=== PATIENT | female | born 1935 | race Native Hawaiian/Other Pacific Islander ===

== ENCOUNTER 2016-10-25 08:31 | Inpatient (IN) | payer OTHER ==
[~2016-10-25 08:31] MED LIST: ALPR0.5T24 PO; ASCO500T18 PO; ASPIRIN LOW STR81 MG PO; CITALOPRAM20 MG PO; DEXTLIQ63 PO; FURO40TA93 PO; HYDR25TA15 PO; LISI5TAB10 PO; MELATONIN3 M1 PO; METOPROLOL25 M1 PO; MULTI-VITAMIN DAILY PO; NAPROSYN500 MG PO; OXYC10TAB PO; PLAVIX75 MG PO; SIMV20TA2 PO; TRAM50TA PO; TRAVATAN Z0.004 % OPTH; ZINC220 MG PO
== END 2016-11-25 08:00 | disposition still patient (30) ==
LOC: PAVA 08:31
PROVIDERS: ADMIT Internal Medicine
DX: Z51.89 Encounter for other specified aftercare (principal)

== ENCOUNTER 2016-11-25 09:00 | Inpatient (IN) | payer OTHER | END 2016-12-26 08:34 | disposition still patient (30) | LOC: PAVA 09:00 | PROVIDERS: ADMIT Internal Medicine | DX: Z51.89 Encounter for other specified aftercare (principal) ==

== ENCOUNTER 2016-12-04 04:18 | Outpatient (CLI) | payer OTHER | END 2016-12-04 19:06 | disposition home or self-care (01) | LOC: LAB 04:18 | DX: D64.89 Other specified anemias (principal) | CPT/HCPCS: 36415; 85014; 85018 ==

== ENCOUNTER 2016-12-11 04:29 | Outpatient (CLI) | payer OTHER | END 2016-12-11 22:54 | disposition home or self-care (01) | LOC: LAB 04:29 | DX: D64.89 Other specified anemias (principal) | CPT/HCPCS: 36415; 85014; 85018 ==

== ENCOUNTER 2016-12-13 07:31 | Day surgery (SDC) | payer OTHER ==
[~2016-12-13] VITALS: Ht 30.5 cm; Wt 0.5 kg
== END 2016-12-13 10:10 ==
LOC: OR 07:31
PROC: 0DJD8ZZ Inspection of Lower Intestinal Tract, Via Natural or Artificial Opening Endoscopic (ICD-10-PCS; principal; 2016-12-13)
DX: K92.2 Gastrointestinal hemorrhage, unspecified (principal); Z85.038 Personal history of other malignant neoplasm of large intestine
CPT/HCPCS: J1642; J2704

== ENCOUNTER 2016-12-18 04:39 | Outpatient (CLI) | payer OTHER | END 2016-12-18 23:30 | disposition home or self-care (01) | LOC: LAB 04:39 | DX: D64.89 Other specified anemias (principal) | CPT/HCPCS: 85014; 85018 ==

== ENCOUNTER 2016-12-25 04:35 | Outpatient (CLI) | payer OTHER | END 2016-12-25 19:42 | disposition home or self-care (01) | LOC: LAB 04:35 | DX: D64.89 Other specified anemias (principal) | CPT/HCPCS: 85014; 85018 ==

== ENCOUNTER 2016-12-26 09:07 | Inpatient (IN) | payer OTHER | END 2017-01-23 08:16 | disposition still patient (30) | LOC: PAVA 09:07 | PROVIDERS: ADMIT Internal Medicine | DX: Z51.89 Encounter for other specified aftercare (principal) ==

== ENCOUNTER 2016-12-27 04:02 | Outpatient (CLI) | payer OTHER ==
[2016-12-27 04:35] LABS: PLATELET COUNT 197 K/uL (152-353)
== END 2016-12-27 06:02 | disposition home or self-care (01) ==
LOC: LAB 04:02
PROVIDERS: Internal Medicine
DX: D64.89 Other specified anemias (principal)
CPT/HCPCS: 85027

== ENCOUNTER 2016-12-31 13:32 | Outpatient (CLI) | payer OTHER | END 2016-12-31 20:13 | disposition home or self-care (01) | LOC: RAD 13:32 | DX: M25.511 Pain in right shoulder (principal); M25.561 Pain in right knee ==

== ENCOUNTER 2017-01-01 04:41 | Outpatient (CLI) | payer OTHER | END 2017-01-01 20:09 | disposition home or self-care (01) | LOC: LAB 04:41 | DX: D64.89 Other specified anemias (principal) | CPT/HCPCS: 36415; 85014; 85018 ==

== ENCOUNTER 2017-01-08 04:41 | Outpatient (CLI) | payer OTHER | END 2017-01-08 05:41 | disposition home or self-care (01) | LOC: LAB 04:41 | DX: D64.89 Other specified anemias (principal) | CPT/HCPCS: 36415; 85014; 85018 ==

== ENCOUNTER 2017-01-15 04:22 | Outpatient (CLI) | payer OTHER | END 2017-01-15 23:35 | disposition home or self-care (01) | LOC: LAB 04:22 | DX: D64.89 Other specified anemias (principal) | CPT/HCPCS: 36415; 85014; 85018 ==

== ENCOUNTER 2017-01-22 04:32 | Outpatient (CLI) | payer OTHER | END 2017-01-22 19:19 | disposition home or self-care (01) | LOC: LAB 04:32 | DX: D64.89 Other specified anemias (principal) | CPT/HCPCS: 36415; 85014; 85018 ==

== ENCOUNTER 2017-01-23 08:27 | Inpatient (IN) | payer OTHER | END 2017-02-23 08:01 | disposition still patient (30) | LOC: PAVA 08:27 | PROVIDERS: ADMIT Internal Medicine | DX: Z51.89 Encounter for other specified aftercare (principal) ==

== ENCOUNTER 2017-01-24 05:32 | Outpatient (CLI) | payer OTHER ==
[2017-01-24 06:48] LABS: PLATELET COUNT 191 K/uL (152-353)
== END 2017-01-24 19:27 | disposition home or self-care (01) ==
LOC: LAB 05:32
PROVIDERS: Internal Medicine
DX: D64.89 Other specified anemias (principal)
CPT/HCPCS: 36415; 85027

== ENCOUNTER 2017-01-29 04:18 | Outpatient (CLI) | payer OTHER | END 2017-01-29 19:38 | disposition home or self-care (01) | LOC: LAB 04:18 | DX: D64.89 Other specified anemias (principal) | CPT/HCPCS: 36415; 85014; 85018 ==

== ENCOUNTER 2017-02-05 04:17 | Outpatient (CLI) | payer OTHER | END 2017-02-05 19:28 | disposition home or self-care (01) | LOC: LAB 04:17 → RAD 04:17 | DX: D64.89 Other specified anemias (principal); R06.02 Shortness of breath | CPT/HCPCS: 36415; 85014; 85018 ==

== ENCOUNTER 2017-02-12 03:14 | Outpatient (CLI) | payer OTHER | END 2017-02-12 19:11 | disposition home or self-care (01) | LOC: LAB 03:14 | DX: D64.89 Other specified anemias (principal) | CPT/HCPCS: 36415; 85014; 85018 ==

== ENCOUNTER 2017-02-19 04:27 | Outpatient (CLI) | payer OTHER | END 2017-02-19 19:12 | disposition home or self-care (01) | LOC: LAB 04:27 | DX: D64.89 Other specified anemias (principal) | CPT/HCPCS: 36415; 85014; 85018 ==

== ENCOUNTER 2017-02-23 09:44 | Inpatient (IN) | payer OTHER | END 2017-03-25 08:29 | disposition still patient (30) | LOC: PAVA 09:44 | PROVIDERS: ADMIT Internal Medicine | DX: Z51.89 Encounter for other specified aftercare (principal) ==

== ENCOUNTER 2017-02-26 05:57 | Outpatient (CLI) | payer OTHER ==
[2017-02-26 07:01] LABS: PLATELET COUNT 234 K/uL (152-353)
== END 2017-02-26 06:57 | disposition home or self-care (01) ==
LOC: LAB 05:57
PROVIDERS: Internal Medicine
DX: D64.89 Other specified anemias (principal); I10 Essential (primary) hypertension
CPT/HCPCS: 85027

== ENCOUNTER 2017-03-05 04:12 | Outpatient (CLI) | payer OTHER | END 2017-03-05 19:15 | disposition home or self-care (01) | LOC: LAB 04:12 | DX: D64.89 Other specified anemias (principal) | CPT/HCPCS: 36415; 85014; 85018 ==

== ENCOUNTER 2017-03-12 05:17 | Outpatient (CLI) | payer OTHER | END 2017-03-12 19:10 | disposition home or self-care (01) | LOC: LAB 05:17 | DX: D64.89 Other specified anemias (principal) | CPT/HCPCS: 85014; 85018 ==

== ENCOUNTER 2017-03-19 05:07 | Outpatient (CLI) | payer OTHER | END 2017-03-19 19:04 | disposition home or self-care (01) | LOC: LAB 05:07 | DX: D64.89 Other specified anemias (principal) | CPT/HCPCS: 36415; 85014; 85018 ==

== ENCOUNTER 2017-03-23 01:13 | Outpatient (CLI) | payer OTHER | END 2017-03-23 19:07 | disposition home or self-care (01) | LOC: LAB 01:13 | DX: Z16.24 Resistance to multiple antibiotics (principal) | CPT/HCPCS: 87081 ==

== ENCOUNTER 2017-03-25 08:42 | Inpatient (IN) | payer OTHER | END 2017-04-25 08:10 | disposition still patient (30) | LOC: PAVA 08:42 | PROVIDERS: ADMIT Internal Medicine | DX: Z51.89 Encounter for other specified aftercare (principal) ==

== ENCOUNTER 2017-03-25 11:17 | Outpatient (CLI) | payer OTHER ==
[2017-03-25 11:38] LABS: PLATELET COUNT 191 K/uL (152-353)
== END 2017-03-25 20:00 | disposition home or self-care (01) ==
LOC: LAB 11:17
PROVIDERS: Internal Medicine
DX: D64.9 Anemia, unspecified (principal)
CPT/HCPCS: 36415; 85027

== ENCOUNTER 2017-04-02 04:15 | Outpatient (CLI) | payer OTHER | END 2017-04-02 05:30 | disposition home or self-care (01) | LOC: LAB 04:15 | DX: D64.89 Other specified anemias (principal) | CPT/HCPCS: 36415; 85014; 85018 ==

== ENCOUNTER 2017-04-09 04:20 | Outpatient (CLI) | payer OTHER | END 2017-04-09 19:42 | disposition home or self-care (01) | LOC: LAB 04:20 | DX: D64.89 Other specified anemias (principal) | CPT/HCPCS: 36415; 85014; 85018 ==

== ENCOUNTER 2017-04-16 04:46 | Outpatient (CLI) | payer OTHER | END 2017-04-16 06:00 | disposition home or self-care (01) | LOC: LAB 04:46 | DX: D64.89 Other specified anemias (principal) | CPT/HCPCS: 36415; 85014; 85018 ==

== ENCOUNTER 2017-04-23 04:36 | Outpatient (CLI) | payer OTHER | END 2017-04-23 19:07 | disposition home or self-care (01) | LOC: LAB 04:36 | DX: D64.89 Other specified anemias (principal) | CPT/HCPCS: 36415; 85014; 85018 ==

== ENCOUNTER 2017-04-25 08:21 | Inpatient (IN) | payer OTHER | END 2017-05-25 14:56 | disposition still patient (30) | LOC: PAVA 08:21 | PROVIDERS: ADMIT Internal Medicine | DX: Z51.89 Encounter for other specified aftercare (principal) ==

== ENCOUNTER 2017-04-30 04:51 | Outpatient (CLI) | payer OTHER ==
[2017-04-30 05:09] LABS: PLATELET COUNT 197 K/uL (152-353)
[2017-04-30 05:37] LABS: POTASSIUM 3.7 mmol/L (3.6-5.2)
== END 2017-04-30 19:06 | disposition home or self-care (01) ==
LOC: LAB 04:51
PROVIDERS: Internal Medicine
DX: Z79.899 Other long term (current) drug therapy (principal); D64.89 Other specified anemias; Z51.81 Encounter for therapeutic drug level monitoring
CPT/HCPCS: 80053; 85027

== ENCOUNTER 2017-05-07 04:41 | Outpatient (CLI) | payer OTHER | END 2017-05-07 05:45 | disposition home or self-care (01) | LOC: LAB 04:41 | DX: D64.89 Other specified anemias (principal) | CPT/HCPCS: 36415; 85014; 85018 ==

== ENCOUNTER 2017-05-14 04:25 | Outpatient (CLI) | payer OTHER | END 2017-05-14 19:03 | disposition home or self-care (01) | LOC: LAB 04:25 | DX: D64.89 Other specified anemias (principal) | CPT/HCPCS: 36415; 85014; 85018 ==

== ENCOUNTER 2017-05-21 04:21 | Outpatient (CLI) | payer OTHER | END 2017-05-21 05:30 | disposition home or self-care (01) | LOC: LAB 04:21 | DX: D64.89 Other specified anemias (principal) | CPT/HCPCS: 36415; 85014; 85018 ==

== ENCOUNTER 2017-05-25 15:05 | Inpatient (IN) | payer OTHER | END 2017-06-25 08:29 | disposition still patient (30) | LOC: PAVA 15:05 | PROVIDERS: ADMIT Internal Medicine | DX: Z51.89 Encounter for other specified aftercare (principal) ==

== ENCOUNTER 2017-05-27 06:27 | Outpatient (CLI) | payer OTHER ==
[2017-05-27 07:14] LABS: PLATELET COUNT 197 K/uL (152-353)
== END 2017-05-27 07:30 | disposition home or self-care (01) ==
LOC: LAB 06:27
PROVIDERS: Internal Medicine
DX: D50.8 Other iron deficiency anemias (principal)
CPT/HCPCS: 85027

== ENCOUNTER 2017-06-03 05:35 | Outpatient (CLI) | payer OTHER | END 2017-06-03 06:40 | disposition home or self-care (01) | LOC: LAB 05:35 | DX: D64.89 Other specified anemias (principal) | CPT/HCPCS: 36415; 85014; 85018 ==

== ENCOUNTER 2017-06-05 14:18 | Outpatient (CLI) | payer OTHER | END 2017-06-05 15:20 | disposition home or self-care (01) | LOC: LAB 14:18 | DX: D64.89 Other specified anemias (principal) | CPT/HCPCS: 85014; 85018 ==

== ENCOUNTER 2017-06-10 13:57 | Outpatient (CLI) | payer OTHER | END 2017-06-10 15:00 | disposition home or self-care (01) | LOC: LAB 13:57 | DX: D64.89 Other specified anemias (principal) | CPT/HCPCS: 36415; 85014; 85018 ==

== ENCOUNTER 2017-06-17 07:02 | Outpatient (CLI) | payer OTHER | END 2017-06-17 19:23 | disposition home or self-care (01) | LOC: LAB 07:02 | DX: D64.89 Other specified anemias (principal) | CPT/HCPCS: 36415; 85014; 85018 ==

== ENCOUNTER 2017-06-24 04:57 | Outpatient (CLI) | payer OTHER | END 2017-06-24 06:00 | disposition home or self-care (01) | LOC: LAB 04:57 | DX: D64.89 Other specified anemias (principal) | CPT/HCPCS: 36415; 85014; 85018 ==

== ENCOUNTER 2017-06-25 08:54 | Inpatient (IN) | payer OTHER | END 2017-07-26 08:10 | disposition still patient (30) | LOC: PAVA 08:54 | PROVIDERS: ADMIT Internal Medicine | DX: Z51.89 Encounter for other specified aftercare (principal) ==

== ENCOUNTER 2017-06-27 06:00 | Outpatient (CLI) | payer OTHER ==
[2017-06-27 08:02] LABS: PLATELET COUNT 200 K/uL (152-353)
== END 2017-06-27 19:54 | disposition home or self-care (01) ==
LOC: LAB 06:00
PROVIDERS: Internal Medicine
DX: D64.89 Other specified anemias (principal)
CPT/HCPCS: 36415; 85027

== ENCOUNTER 2017-07-01 05:42 | Outpatient (CLI) | payer OTHER | END 2017-07-01 19:18 | disposition home or self-care (01) | LOC: LAB 05:42 | DX: D64.89 Other specified anemias (principal) | CPT/HCPCS: 85014; 85018 ==

== ENCOUNTER 2017-07-08 05:36 | Outpatient (CLI) | payer OTHER | END 2017-07-08 06:40 | disposition home or self-care (01) | LOC: LAB 05:36 | DX: D64.89 Other specified anemias (principal) | CPT/HCPCS: 85014; 85018 ==

== ENCOUNTER 2017-07-15 05:57 | Outpatient (CLI) | payer OTHER | END 2017-07-15 19:29 | disposition home or self-care (01) | LOC: LAB 05:57 | DX: D64.89 Other specified anemias (principal) | CPT/HCPCS: 36415; 85014; 85018 ==

== ENCOUNTER 2017-07-22 04:54 | Outpatient (CLI) | payer OTHER | END 2017-07-22 05:55 | disposition home or self-care (01) | LOC: LAB 04:54 | DX: D64.89 Other specified anemias (principal) | CPT/HCPCS: 85014; 85018 ==

== ENCOUNTER 2017-07-26 05:23 | Outpatient (CLI) | payer OTHER ==
[2017-07-26 06:48] LABS: PLATELET COUNT 223 K/uL (152-353)
== END 2017-07-26 06:25 | disposition home or self-care (01) ==
LOC: LAB 05:23
PROVIDERS: Internal Medicine
DX: D64.89 Other specified anemias (principal)
CPT/HCPCS: 85027

== ENCOUNTER 2017-07-26 08:22 | Inpatient (IN) | payer OTHER | END 2017-08-25 09:07 | disposition still patient (30) | LOC: PAVA 08:22 | PROVIDERS: ADMIT Internal Medicine | DX: Z51.89 Encounter for other specified aftercare (principal) ==

== ENCOUNTER 2017-07-29 06:21 | Outpatient (CLI) | payer OTHER | END 2017-07-29 18:57 | disposition home or self-care (01) | LOC: LAB 06:21 | DX: D64.89 Other specified anemias (principal) | CPT/HCPCS: 85014; 85018 ==

== ENCOUNTER 2017-08-02 06:07 | Outpatient (CLI) | payer OTHER ==
[2017-08-02 06:18] LABS: PLATELET COUNT 129 K/uL (152-353)
== END 2017-08-02 18:53 | disposition home or self-care (01) ==
LOC: LAB 06:07
PROVIDERS: Internal Medicine
DX: D64.89 Other specified anemias (principal)
CPT/HCPCS: 85027

== ENCOUNTER 2017-08-05 05:46 | Outpatient (CLI) | payer OTHER | END 2017-08-05 18:45 | disposition home or self-care (01) | LOC: LAB 05:46 | DX: D64.89 Other specified anemias (principal) | CPT/HCPCS: 36415; 85014; 85018 ==

== ENCOUNTER 2017-08-12 05:27 | Outpatient (CLI) | payer OTHER | END 2017-08-12 06:30 | disposition home or self-care (01) | LOC: LAB 05:27 | DX: D64.89 Other specified anemias (principal) | CPT/HCPCS: 85014; 85018 ==

== ENCOUNTER 2017-08-19 05:03 | Outpatient (CLI) | payer OTHER | END 2017-08-19 19:00 | disposition home or self-care (01) | LOC: LAB 05:03 | DX: D64.89 Other specified anemias (principal) | CPT/HCPCS: 36415; 85014; 85018 ==

== ENCOUNTER 2017-08-25 09:18 | Inpatient (IN) | payer OTHER ==
[2017-09-11 09:06] LABS: POTASSIUM 3.7 mmol/L (3.6-5.2); SODIUM 137 mmol/L (136-145)
== END 2017-09-25 10:23 | disposition still patient (30) ==
LOC: PAVA 09:18
PROVIDERS: ADMIT Internal Medicine
DX: R17 Unspecified jaundice (principal); G89.4 Chronic pain syndrome; F06.4 Anxiety disorder due to known physiological condition; E78.2 Mixed hyperlipidemia; H40.9 Unspecified glaucoma; D55.9 Anemia due to enzyme disorder, unspecified; R06.00 Dyspnea, unspecified; G47.00 Insomnia, unspecified
CPT/HCPCS: 80048; 80076; 85014; 85018

== ENCOUNTER 2017-08-26 06:14 | Outpatient (CLI) | payer OTHER ==
[2017-08-26 07:32] LABS: PLATELET COUNT 213 K/uL (152-353)
== END 2017-08-26 07:15 | disposition home or self-care (01) ==
LOC: LAB 06:14
PROVIDERS: Internal Medicine
DX: I10 Essential (primary) hypertension (principal)
CPT/HCPCS: 36415; 85027

== ENCOUNTER 2017-09-02 07:03 | Outpatient (CLI) | payer OTHER ==
[2017-09-02 10:57] LABS: SODIUM 138 mmol/L (136-145)
== END 2017-09-02 18:56 | disposition home or self-care (01) ==
LOC: LAB 07:03
PROVIDERS: Internal Medicine
DX: R17 Unspecified jaundice (principal); D64.89 Other specified anemias
CPT/HCPCS: 80048; 80076; 83735; 85014; 85018

== ENCOUNTER 2017-09-03 09:15 | Outpatient (CLI) | payer OTHER | END 2017-09-03 19:03 | disposition home or self-care (01) | LOC: US 09:15 | DX: R79.89 Other specified abnormal findings of blood chemistry (principal); R17 Unspecified jaundice ==

== ENCOUNTER 2017-09-23 06:36 | Outpatient (CLI) | payer OTHER | END 2017-09-23 19:00 | disposition home or self-care (01) | LOC: LABW 06:36 → LAB 06:36 | DX: D64.89 Other specified anemias (principal); Z11.4 Encounter for screening for human immunodeficiency virus [HIV]; Z77.21 Contact with and (suspected) exposure to potentially hazardous body fluids; R94.5 Abnormal results of liver function studies | CPT/HCPCS: 36415; 80074; 85014; 85018; 86703; G0432 ==

== ENCOUNTER 2017-09-24 14:11 | Outpatient (CLI) | payer OTHER ==
[2017-09-24 06:51] LABS: PLATELET COUNT 286 K/uL (152-353)
[2017-09-24 08:10] LABS: POTASSIUM 3.5 mmol/L (3.6-5.2); SODIUM 141 mmol/L (136-145)
== END 2017-09-24 19:05 | disposition home or self-care (01) ==
LOC: LAB 14:11
PROVIDERS: Internal Medicine
DX: K83.1 Obstruction of bile duct (principal); R94.5 Abnormal results of liver function studies
CPT/HCPCS: 36415; 80053; 85027; 86316

== ENCOUNTER 2017-09-25 12:18 | Inpatient (IN) | payer OTHER | END 2017-10-25 08:11 | disposition still patient (30) | LOC: PAVA 12:18 | PROVIDERS: ADMIT Internal Medicine ==

== ENCOUNTER 2017-09-30 07:37 | Outpatient (CLI) | payer OTHER ==
[2017-09-30 08:21] LABS: PLATELET COUNT 211 K/uL (152-353)
== END 2017-09-30 08:40 | disposition home or self-care (01) ==
LOC: LAB 07:37
PROVIDERS: Internal Medicine
DX: R68.89 Other general symptoms and signs (principal); Z79.01 Long term (current) use of anticoagulants; Z51.81 Encounter for therapeutic drug level monitoring
CPT/HCPCS: 36415; 85027

== ENCOUNTER 2017-10-03 11:30 | Outpatient (CLI) | payer OTHER | END 2017-10-03 19:12 | disposition home or self-care (01) | LOC: LAB 11:30 | DX: D64.89 Other specified anemias (principal); R19.5 Other fecal abnormalities | CPT/HCPCS: 82272 ==

== ENCOUNTER 2017-10-06 21:29 | Outpatient (CLI) | payer OTHER | END 2017-10-06 22:00 | disposition home or self-care (01) | LOC: LAB 21:29 | DX: D64.89 Other specified anemias (principal); R19.5 Other fecal abnormalities | CPT/HCPCS: 82272 ==

== ENCOUNTER 2017-10-07 06:00 | Outpatient (CLI) | payer OTHER | END 2017-10-07 07:00 | disposition home or self-care (01) | LOC: LABW 06:00 | DX: D64.89 Other specified anemias (principal) | CPT/HCPCS: 36415; 85014; 85018 ==

== ENCOUNTER 2017-10-14 05:50 | Outpatient (CLI) | payer OTHER | END 2017-10-14 19:02 | disposition home or self-care (01) | LOC: LAB 05:50 | DX: D64.89 Other specified anemias (principal) | CPT/HCPCS: 36415; 85014; 85018 ==

== ENCOUNTER 2017-10-21 06:02 | Outpatient (CLI) | payer OTHER ==
[~2017-10-21] VITALS: Ht 165.1 cm; Wt 79.5 kg
[2017-10-21 11:17] VITALS: BP 128/68; TEMP 98.8; Ht 165.1 cm; Wt 79.5 kg
[2017-10-21 16:00] VITALS: BP 153/55; TEMP 98.7
--- NOTE | 2017-10-21 22:00 | NUR ---
2ND UNIT OF PRBC'S INITIATED.
[2017-10-22] VITALS: BP 133/84; TEMP 97.8
--- NOTE | 2017-10-22 01:44 | NUR ---
2ND UNIT OF PRBC'S INITIATED
--- NOTE | 2017-10-22 01:44 | NUR ---
3RD UNIT OF PRBC'S INITIATED.
[2017-10-22 04:00] VITALS: BP 143/80; TEMP 98.4
--- NOTE | 2017-10-22 04:30 | NUR ---
MICHAEL CATH FLUSHED WITH 10CC'S NS AND HEPARIN 5CC'S.
[2017-10-22 08:00] VITALS: BP 129/59; TEMP 97.2
--- NOTE | 2017-10-22 10:15 | NUR ---
PAC FLUSHED WITH 5ML OF NS AND 5ML OF HEPARIN FLUSH. PAC DEACCESSED. DSG APPLIED.
--- NOTE | 2017-10-22 10:20 | NUR ---
PERICARE DONE. CLEAN GOWN PUT ON. D/C INSTRUCTIONS GIVEN. REPORT TO MERT MIXON AT [facility]. PT TO [facility] VIA WC IN STABLE COND.
== END 2017-10-22 10:00 | disposition home or self-care (01) ==
LOC: INF 06:02 → MED/SURG 06:02 → LAB 06:02 → MED/SURG 10:00 → LAB 10:00 → MED/SURG 18:54 → LAB 18:54 → INF 22:04 → LAB 22:05 → MED/SURG 22:05 → INF 10-22 10:00 → MED/SURG 10-22 10:00
PROC: 30233N1 Transfusion of Nonautologous Red Blood Cells into Peripheral Vein, Percutaneous Approach (ICD-10-PCS; principal; 2017-10-21)
PROC: 30233N1 Transfusion of Nonautologous Red Blood Cells into Peripheral Vein, Percutaneous Approach (ICD-10-PCS; 2017-10-22)
DX: D64.89 Other specified anemias (principal); K92.2 Gastrointestinal hemorrhage, unspecified; D49.0 Neoplasm of unspecified behavior of digestive system
CPT/HCPCS: 36430; 36591; 85014; 85018; 86850; 86900; 86901; 86922; 96374; 96375; J1642; J1940; P9016

== ENCOUNTER 2017-10-25 08:46 | Inpatient (IN) | payer OTHER | END 2017-11-25 08:26 | disposition still patient (30) | LOC: PAVA 08:46 | PROVIDERS: ADMIT Internal Medicine ==

== ENCOUNTER 2017-10-28 05:56 | Outpatient (CLI) | payer OTHER ==
[2017-10-28 06:38] LABS: PLATELET COUNT 282 K/uL (152-353)
[2017-10-28 06:49] LABS: POTASSIUM 3.5 mmol/L (3.6-5.2)
== END 2017-10-28 07:00 | disposition home or self-care (01) ==
LOC: LAB 05:56
PROVIDERS: Internal Medicine
DX: D64.89 Other specified anemias (principal); I10 Essential (primary) hypertension
CPT/HCPCS: 36415; 80053; 80061; 85027

== ENCOUNTER 2017-10-31 13:14 | Outpatient (CLI) | payer OTHER | END 2017-10-31 19:11 | disposition home or self-care (01) | LOC: RAD 13:14 | DX: M25.551 Pain in right hip (principal) ==

== ENCOUNTER 2017-11-04 06:00 | Outpatient (CLI) | payer OTHER | END 2017-11-04 19:11 | disposition home or self-care (01) | LOC: LAB 06:00 | DX: D64.89 Other specified anemias (principal) | CPT/HCPCS: 85014; 85018 ==

== ENCOUNTER 2017-11-07 15:15 | Outpatient (CLI) | payer OTHER ==
[2017-11-07 15:58] LABS: POTASSIUM 3.6 mmol/L (3.6-5.2)
== END 2017-11-07 16:15 | disposition home or self-care (01) ==
LOC: LAB 15:15
PROVIDERS: Internal Medicine
DX: D64.89 Other specified anemias (principal)
CPT/HCPCS: 80048

== ENCOUNTER 2017-11-11 07:47 | Outpatient (CLI) | payer OTHER | END 2017-11-11 08:50 | disposition home or self-care (01) | LOC: LAB 07:47 | DX: D64.89 Other specified anemias (principal) | CPT/HCPCS: 85014; 85018 ==

== ENCOUNTER 2017-11-12 06:27 | Outpatient (CLI) | payer OTHER ==
[2017-11-12 06:57] LABS: POTASSIUM 3.7 mmol/L (3.6-5.2)
== END 2017-11-12 17:59 | disposition home or self-care (01) ==
LOC: LAB 06:27
PROVIDERS: Internal Medicine
DX: D64.89 Other specified anemias (principal)
CPT/HCPCS: 36415; 80048

== ENCOUNTER 2017-11-18 05:36 | Outpatient (CLI) | payer OTHER | END 2017-11-18 19:33 | disposition home or self-care (01) | LOC: LAB 05:36 | DX: D64.89 Other specified anemias (principal) | CPT/HCPCS: 85014; 85018 ==

== ENCOUNTER 2017-11-25 08:47 | Inpatient (IN) | payer OTHER ==
[2017-12-26] MEDS ORDERED: PANTOPRAZOLE 40MG TA PO ×2 (10:52)
[2017-12-26] MEDS ORDERED: KLOR-CON M2020 MEQ OR ×2 (10:54)
[2017-12-26] MEDS ORDERED: DULO30CA PO ×2 (10:59)
== END 2017-12-26 08:30 | disposition still patient (30) ==
LOC: PAVA 08:47
PROVIDERS: ADMIT Internal Medicine

== ENCOUNTER 2017-11-26 04:35 | Outpatient (CLI) | payer OTHER ==
[2017-11-26 06:24] LABS: PLATELET COUNT 205 K/uL (152-353)
== END 2017-11-26 20:23 | disposition home or self-care (01) ==
LOC: LAB 04:35
PROVIDERS: Internal Medicine
DX: D64.89 Other specified anemias (principal)
CPT/HCPCS: 36415; 85027

== ENCOUNTER 2017-12-02 05:47 | Outpatient (CLI) | payer OTHER | END 2017-12-02 20:16 | disposition home or self-care (01) | LOC: LAB 05:47 | DX: D64.89 Other specified anemias (principal) | CPT/HCPCS: 36415; 85014; 85018 ==

== ENCOUNTER 2017-12-09 04:40 | Outpatient (CLI) | payer OTHER | END 2017-12-09 21:44 | disposition home or self-care (01) | LOC: LAB 04:40 | DX: D64.89 Other specified anemias (principal) | CPT/HCPCS: 36415; 85014; 85018 ==

== ENCOUNTER → 2017-12-18 03:44 | Outpatient (CLI) | payer OTHER ==
[~2017-12-18 03:44] MED LIST changes: +DULO30CA PO; +KLOR-CON M2020 MEQ OR; +PANTOPRAZOLE 40MG TA PO
== END | disposition home or self-care (01) ==
LOC: LAB 03:44
DX: D64.89 Other specified anemias (principal)
CPT/HCPCS: 85014; 85018

== ENCOUNTER 2017-12-23 04:59 | Outpatient (CLI) | payer OTHER ==
[~2017-12-23 04:59] MED LIST changes: -DULO30CA PO; -KLOR-CON M2020 MEQ OR; -PANTOPRAZOLE 40MG TA PO
== END 2017-12-23 21:06 | disposition home or self-care (01) ==
LOC: LAB 04:59
DX: D64.89 Other specified anemias (principal)
CPT/HCPCS: 36415; 85014; 85018

== ENCOUNTER 2017-12-25 08:35 | Observation (INO) | payer OTHER ==
[2017-12-25] VITALS (23 sets, daily range): BP systolic 61–110; BP diastolic 35–83; TEMP 97.6–97.8; Ht 165.1 cm; Wt 84.6 kg
[~2017-12-25] VITALS: Ht 165.1 cm; Wt 84.6 kg
[2017-12-25 09:24] LABS: PLATELET COUNT 240 K/uL (152-353)
[2017-12-25 09:30] LABS: POTASSIUM 3.7 mmol/L (3.6-5.2); SODIUM 133 mmol/L (136-145)
[2017-12-26] VITALS (9 sets, daily range): BP systolic 95–115; BP diastolic 61–86; TEMP 98.1–98.3
[2017-12-26 06:26] LABS: POTASSIUM 3.4 mmol/L (3.6-5.2)
[2017-12-26 06:31] LABS: PLATELET COUNT 183 K/uL (152-353)
[2017-12-26] MEDS ORDERED: PANTOPRAZOLE 40MG TA PO ×2 (10:52)
[2017-12-26] MEDS ORDERED: KLOR-CON M2020 MEQ OR ×2 (10:54)
[2017-12-26] MEDS ORDERED: DULO30CA PO ×2 (10:59)
== END 2017-12-26 12:00 | disposition home or self-care (01) ==
LOC: ED 08:35 → ICU 11:00
PROVIDERS: Internal Medicine; ADMIT Emergency Medicine
DX: I95.89 Other hypotension (principal); R53.1 Weakness; R41.82 Altered mental status, unspecified; I25.10 Atherosclerotic heart disease of native coronary artery without angina pectoris; I48.91 Unspecified atrial fibrillation; E03.8 Other specified hypothyroidism; D64.89 Other specified anemias; E78.00 Pure hypercholesterolemia, unspecified
CPT/HCPCS: 36415; 80053; 82550; 83735; 84443; 84484; 85027; 87040; 93005; 96360; 99220; 99284; G0378

== ENCOUNTER 2017-12-26 09:18 | Inpatient (IN) | payer OTHER ==
[2017-12-26] MEDS ORDERED: PANTOPRAZOLE 40MG TA PO (10:52)
[2017-12-26] MEDS ORDERED: KLOR-CON M2020 MEQ OR (10:54)
[2017-12-26] MEDS ORDERED: DULO30CA PO (10:59)
== END 2018-01-23 08:06 | disposition still patient (30) ==
LOC: PAVA 09:18
PROVIDERS: ADMIT Internal Medicine

== ENCOUNTER 2017-12-30 06:47 | Outpatient (CLI) | payer OTHER ==
[~2017-12-30 06:47] MED LIST changes: +DULO30CA PO; +KLOR-CON M2020 MEQ OR; +PANTOPRAZOLE 40MG TA PO
[2017-12-30 07:10] LABS: PLATELET COUNT 188 K/uL (152-353)
== END 2017-12-30 20:22 | disposition home or self-care (01) ==
LOC: LAB 06:47
PROVIDERS: Internal Medicine
DX: D64.89 Other specified anemias (principal)
CPT/HCPCS: 36415; 85027

== ENCOUNTER 2018-01-06 05:35 | Outpatient (CLI) | payer OTHER | END 2018-01-06 19:15 | disposition home or self-care (01) | LOC: LAB 05:35 | DX: D64.89 Other specified anemias (principal) | CPT/HCPCS: 36415; 85014; 85018 ==

== ENCOUNTER 2018-01-13 05:30 | Outpatient (CLI) | payer OTHER ==
[2018-01-13 07:54] LABS: PLATELET COUNT 204 K/uL (152-353)
== END 2018-01-13 19:34 | disposition home or self-care (01) ==
LOC: LABW 05:30
PROVIDERS: Internal Medicine
DX: D64.89 Other specified anemias (principal)
CPT/HCPCS: 85027

== ENCOUNTER 2018-01-20 03:46 | Outpatient (CLI) | payer OTHER | END 2018-01-20 20:02 | disposition home or self-care (01) | LOC: LAB 03:46 → LABW 03:46 | DX: D64.89 Other specified anemias (principal) | CPT/HCPCS: 36415; 85014; 85018 ==

== ENCOUNTER 2018-01-23 08:43 | Inpatient (IN) | payer OTHER | END 2018-02-23 08:00 | disposition still patient (30) | LOC: PAVA 08:43 | PROVIDERS: ADMIT Internal Medicine ==

== ENCOUNTER 2018-02-03 05:08 | Outpatient (CLI) | payer OTHER ==
[2018-02-03 10:12] LABS: PLATELET COUNT 212 K/uL (152-353)
== END 2018-02-03 21:29 | disposition home or self-care (01) ==
LOC: LAB 05:08
PROVIDERS: Internal Medicine
DX: D64.89 Other specified anemias (principal)
CPT/HCPCS: 85027

== ENCOUNTER 2018-02-10 08:13 | Outpatient (CLI) | payer OTHER | END 2018-02-10 19:18 | disposition home or self-care (01) | LOC: LAB 08:13 | DX: D64.89 Other specified anemias (principal) | CPT/HCPCS: 85014; 85018 ==

== ENCOUNTER 2018-02-23 09:00 | Inpatient (IN) | payer OTHER | END 2018-03-10 06:30 | disposition E | LOC: PAVA 09:00 | PROVIDERS: ADMIT Internal Medicine ==

== ENCOUNTER 2018-02-24 06:24 | Outpatient (CLI) | payer OTHER ==
[2018-02-24 09:24] LABS: PLATELET COUNT 196 K/uL (152-353)
== END 2018-02-24 23:31 | disposition home or self-care (01) ==
LOC: LAB 06:24 → LABW 06:24 → LAB 23:31
PROVIDERS: Internal Medicine
DX: R41.82 Altered mental status, unspecified (principal); D64.89 Other specified anemias
CPT/HCPCS: 81000; 85027

== ENCOUNTER 2018-03-03 12:43 | Outpatient (CLI) | payer OTHER | END 2018-03-03 21:50 | disposition home or self-care (01) | LOC: LAB 12:43 | DX: D64.89 Other specified anemias (principal) | CPT/HCPCS: 36415; 85014; 85018 ==

== ENCOUNTER 2018-03-04 11:11 | Outpatient (CLI) | payer OTHER | END 2018-03-04 21:57 | disposition home or self-care (01) | LOC: LAB 11:11 | DX: R17 Unspecified jaundice (principal) | CPT/HCPCS: 36415; 80076 ==

== ENCOUNTER 2018-03-10 06:20 | Outpatient (CLI) | payer OTHER | END 2018-03-10 19:58 | disposition home or self-care (01) | LOC: LAB 06:20 | DX: D64.89 Other specified anemias (principal) | CPT/HCPCS: 85014; 85018 ==